=== PATIENT | male | born 1945 | race Caucasian/White ===

== ENCOUNTER 2016-10-30 19:38 | Emergency (ER) | payer OTHER ==
[~2016-10-30] VITALS: Ht 193 cm; Wt 100.0 kg
[2016-10-30] MEDS ORDERED: CARDIAC MED PO (19:58)
[2016-10-30] MEDS ORDERED: HTN MED PO (19:58)
[2016-10-30] MEDS ORDERED: CHOLEST MED PO (19:58)
[2016-10-30 21:17] VITALS: BP 112/69
== END 2016-10-30 21:30 | disposition home or self-care (01) ==
LOC: EMS 19:40
DX: R45.851 Suicidal ideations (principal); I10 Essential (primary) hypertension; E78.00 Pure hypercholesterolemia, unspecified
CPT/HCPCS: 99285